=== PATIENT | female | born 1945 | race Caucasian/White ===

== ENCOUNTER → 2020-03-20 14:15 | Outpatient (BNVA) | payer MEDICARE, OTHER, SELFPAY | PROVIDERS: Visit Provider Obstetrics & Gynecology | DX: N81.4 Uterovaginal prolapse, unspecified (principal); N81.10 Cystocele, unspecified | CPT/HCPCS: 80053; 87077; 87086; 87186 ==

== ENCOUNTER → 2020-04-02 15:50 | Outpatient (BNVA) | payer MEDICARE, OTHER, SELFPAY | PROVIDERS: Visit Provider Obstetrics & Gynecology | DX: N81.4 Uterovaginal prolapse, unspecified (principal); F41.9 Anxiety disorder, unspecified | CPT/HCPCS: 81000 ==

== ENCOUNTER → 2020-04-06 08:22 | Outpatient (BNVA) | payer MEDICARE, OTHER, SELFPAY | PROVIDERS: Visit Provider Internal Medicine | DX: N81.4 Uterovaginal prolapse, unspecified (principal); Z01.812 Encounter for preprocedural laboratory examination | CPT/HCPCS: 87635 ==

== ENCOUNTER 2020-04-08 13:23 | Observation (INO) | payer MEDICARE, OTHER, SELFPAY ==
[2020-04-07 10:59] VITALS: BMI 24.7
--- NOTE | 2020-04-07 11:14 | ECG_ITS ---
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 Measurements Intervals [place] Rate: 80 P: 27 MD: 160 QRS: -11 QRSD: 90 T: -7 QT: 377 QTc: 437 Interpretive Statements SINUS RHYTHM POSSIBLE LEFT ATRIAL ENLARGEMENT [-0.1mV P WAVE IN V1/V2] POSSIBLE LEFT VENTRICULAR HYPERTROPHY [VOLTAGE CRITERIA PLUS LAE OR QRS WIDENING] POSSIBLE ANTERIOR MYOCARDIAL INFARCTION [30 ms Q WAVE IN V3/V4, OR R < 0.2 mV IN V4], OF INDETERMINATE AGE No previous ECG available for comparison Electronically Signed On 04-07-2020 21:12:04 CDT by Sheryl Pineda M.D. [id number]
--- NOTE | 2020-04-07 11:31 | ANES.PREANE2 ---
Pre-Anesthetic Assessment Pre-Anesthetic Assessment: Height/Weight: Height 1.6 m Weight 63.503 kg Preop Diagnosis: Total uterine prolapse Proposed Procedure: Operation Date: 04/08/20 09:15 Proposed Procedures p Colpocleisis [place] Procedure 75697 N81.4(Not Applicable) - Neftaly Donnelly MD Familial anesthetic complications: No hx of anesthesia (mother had ponv requirng overnight stay) Social: Social History: No alcohol and No tobacco Exam: Pre-Anes Outpt Exam: alert, oriented x 3, clear to auscultation bilaterally and regular rate & rhythm Airway: Cervical ROM: WNL MP: 4 Dentition: Chipped Pulmonary: Pulmonary: None reported CV/HEM: CV/HEM: HTN Comments: Climbs up a couple flights of stairs with no SOB or chest pain : : None reported Hepatic: Hepatic: None reported GI: GI: None reported Metabolic: Metabolic: None reported Musc/skel: Musc/skel: None reported Neuropsych: Neuropsych: None reported Anesthetic Plan: ASA status: 1 Anesthesia: General Risk of > 500 ml blood loss (7ml/kg in children): No PFSH Anesthesia PFSH: Medical History (Updated 04/02/20 @ 15:50 by Neftaly Donnelly MD) Uterine prolapse Family History Mother Anesthesia complication Denies family history of Diabetes Clotting disorder Hyperlipidemia Bleeding disorder Hypertension Stroke Social History Smoking and tobacco status: never smoked Alcohol intake: never Data Anesthesia Cardiac Studies: No Data to Display
[2020-04-07 11:48] LABS: Basophils # 0.1 10^3/uL (0.0-0.1); Basophils % 0.6 %; Hematocrit 44.9 % (37.0-47.0); Hemoglobin 14.3 g/dL (11.5-15.3); Lymphocytes # 1.6 10^3/uL (0.8-4.8); Mean Corpuscular HGB Conc 31.8 g/dL (30.0-36.0); Mean Corpuscular Hemoglobin 30.8 pg (28.0-34.0); Mean Corpuscular Volume 96.8 fL (81-99); Mean Platelet Volume 10.8 fL (7.4-10.4); Monocytes # 0.6 10^3/uL (0.2-0.9); Monocytes % 7.4 %; Neutrophils # 6.01 10^3/uL (1.8-7.7); Neutrophils % 72.6 %; Nucleated Red Blood Cells % 0 %; Platelet Count 221 10^3/cmm (130-400); Red Blood Count 4.64 10^6/uL (4.1-5.3); Red Cell Distribution Width 13.8 % (12.1-15.1); White Blood Count 8.3 10^3/uL (4.0-10.0)
[2020-04-07 11:50] LABS: Add Urine Microscopic? YES; Bilirubin Urine Neg (NEGATIVE); Blood Urine Neg (Negative); Glucose Urine UA Norm (Normal); Ketones Urine Negative (Negative); Leukocyte Esterase Urine Trace (Negative); Nitrate Urine Negative (Negative); Protein Urine Neg (Negative); Urine Appearance Clear (CLEAR); Urine Color Yellow (Yellow); Urobilinogen Urine Norm (Negative); pH Urine 6 (5-7)
[2020-04-07 11:57] LABS: Add Urine Culture? No; Bacteria Urine 2+; RBC Urine 0-4 /hpf (0-2); Squamous Epithelial Cell Urine 0-4 (0-5); WBC Urine 0-4 /hpf (0-5)
[2020-04-07 12:19] LABS: Alanine Aminotransferase 16 U/L (0-33); Albumin Level 4.6 g/dL (3.5-5.2); Alkaline Phosphatase 73 IU/L (35-105); Anion Gap 16.9 (5-19); Aspartate Amino Transferase 14 U/L (0-32); Blood Urea Nitrogen 28 mg/dL (8-23); Calcium 9.2 mg/dL (8.5-10.5); Carbon Dioxide 22 mmol/L (22-29); Chloride 103 mmol/L (98-107); Globulin 2.8 g/dL (1.3-4.6); Glucose 112 mg/dL (65-115); Osmolality Calculated 284 mOsm/kg (285-295); Potassium 3.9 mmol/L (3.5-5.1); Sodium 138 mmol/L (136-145); Total Bilirubin 0.4 mg/dL (0.15-1.2); Total Protein 7.4 g/dL (6.6-8.7)
[2020-04-08] VITALS (15 sets, daily range): BP systolic 93–143; BP diastolic 56–95; PULSE 62–88; RESP 14–18; TEMP 36.3–36.8; O2SAT 93–99; BMI 24.7
[2020-04-08] MEDS: sodium chloride 0.9% 1,000 ML 30 ML IV (08:41)
--- NOTE | 2020-04-08 08:46 | ANES.PAUD2 ---
Pre-Anesthetic Update Pre-Anesthetic Assessment: Date of Surgery/Procedure: 04/08/20 Preop Diagnosis: Total uterine prolapse Proposed Procedure: Operation Date: 04/08/20 09:15 Proposed Procedures p Colpocleisis [place] Procedure 94476 N81.4(Not Applicable) - Neftaly Donnelly MD Any changes to Pre-Anesthetic Assessment?: No Last Intake: Intake Last Liquid Date 04/07/20 Last Liquid Time 23:00 Last Solid Date 04/07/20 Last Solid Time 23:00 Labs Last 48hrs: Laboratory Results - last 48 hr 04/07/20 04/07/20 04/07/20 11:12 11:12 11:12 WBC 8.3 RBC 4.64 Hgb 14.3 Hct 44.9 MCV 96.8 MCH 30.8 MCHC 31.8 RDW 13.8 Plt Count 221 MPV 10.8 H Neut % (Auto) 72.6 Lymph % (Auto) 19.0 [place] % (Auto) 7.4 Eos % (Auto) 0.0 Baso % (Auto) 0.6 Neut # (Auto) 6.01 Lymph # (Auto) 1.6 [place] # (Auto) 0.6 Eos # (Auto) 0.0 Baso # (Auto) 0.1 Nucleated RBC % (a uto) 0 Nucleated RBCs # 0.0 Sodium 138 Potassium 3.9 Chloride 103 Carbon Dioxide 22 Anion Gap 16.9 BUN 28 H Creatinine 1.3 H GFR Calculation Not Reportable Glucose 112 Calculated Osmolal ity 284 L Calcium 9.2 Total Bilirubin 0.4 AST 14 ALT 16 Alkaline Phosphata se 73 Total Protein 7.4 Albumin 4.6 Globulin 2.8 Urine Color Yellow Urine Appearance Clear Urine pH 6 Ur Specific Gravit y 1.010 Urine Protein Neg Urine Glucose (UA) Norm Urine Ketones Negative Urine Blood Neg Urine Nitrate Negative Urine Bilirubin Neg Urine Urobilinogen Norm Ur Leukocyte [place] ase Trace H Urine RBC 0-4 H Urine WBC 0-4 H Ur Squamous Epith Cells 0-4 H Amorphous Sediment Not Reportable Urine Bacteria 2+ H Blood Type Rho(D) Type Antibody Screen 04/07/20 11:12 WBC RBC Hgb Hct MCV MCH MCHC RDW Plt Count MPV Neut % (Auto) Lymph % (Auto) [place] % (Auto) Eos % (Auto) Baso % (Auto) Neut # (Auto) Lymph # (Auto) [place] # (Auto) Eos # (Auto) Baso # (Auto) Nucleated RBC % (a uto) Nucleated RBCs # Sodium Potassium Chloride Carbon Dioxide Anion Gap BUN Creatinine GFR Calculation Glucose Calculated Osmolal ity Calcium Total Bilirubin AST ALT Alkaline Phosphata se Total Protein Albumin Globulin Urine Color Urine Appearance Urine pH Ur Specific Gravit y Urine Protein Urine Glucose (UA) Urine Ketones Urine Blood Urine Nitrate Urine Bilirubin Urine Urobilinogen Ur Leukocyte [place] ase Urine RBC Urine WBC Ur Squamous Epith Cells Amorphous Sediment Urine Bacteria Blood Type B Positive Rho(D) Type Positive Antibody Screen Negative Vitals: Temperature 97.7 F 04/08/20 08:19 Temperature Source Temporal Artery S can 04/08/20 08:19 Pulse Rate 88 04/08/20 08:19 Respiratory Rate 18 04/08/20 08:19 Blood Pressure 122/93 04/08/20 08:19 Blood Pressure Corinne n 102 04/08/20 08:19 Pulse Oximetry 95 04/08/20 08:19 Oxygen Delivery Me thod 04/08/20 08:19 Exam: Pre-Anes Outpt Exam: alert, oriented x 3, clear to auscultation bilaterally and regular rate & rhythm Cardiac Studies: No Data to Display
--- NOTE | 2020-04-08 10:57 | W.PM.OPSUD ---
Surgery/Procedure H&P Update DATE OF PROCEDURE: April 08, 2020 DATE H&P PERFORMED: 04/02/20 H&P UPDATE INFORMATION: I have reviewed H&P completed within last 30 days, I have examined patient prior to procedure and No changes to prior documentation PREOP DIAGNOSIS: Total uterine prolapse PLANNED PROCEDURE: Operation Date: 04/08/20 09:15 Proposed Procedures p Colpocleisis [place] Procedure 59152 N81.4(Not Applicable) - Neftaly Donnelly MD
[2020-04-08] MEDS: scopolamine 1.5 Patch 1 PATCH TRANSDERMA (11:06)
[2020-04-08] MEDS: midazolam 1 mg/mL INJ 2 mL 2 MG IVP (11:06)
--- NOTE | 2020-04-08 12:54 | P.OP_ITS ---
Operative Report Date of procedure: April 08, 2020 Pre-op Diagnosis: Total uterine prolapse Post-op diagnosis: same Procedure Done: [place] procedural colpocleisis. Cystoscopy Bladder stone removal. Specimens removed/disposition: Bladder stone Surgeon: Neftaly Donnelly Anesthesia: MAC Estimated blood loss (mL): 50 IV fluids (mL): 800 Urine output (mL): 100 Procedure: After informed consent, the patient was taken to the Operating Room where general anesthesia was administered. She was placed in the dorsal lithotomy position and prepped and draped in sterile fashion. A time out procedure was performed. The patient was examined under anesthesia and found to have complete uterine procidentia. A Costa catheter was placed into the bladder identify the bladder neck. Placing the cervix on traction to luciano the vagina. The vaginal mucosa was injected with either bupivacaine or 2% lidocaine with 1:200,000 epinephrine, just below the vaginal epithelium anteriorly and posteriorly. With marking pen to zee out the rectangular areas of the vaginal epithelium that are to be removed anteriorly and posteriorly. Extend the anterior rectangle from approximately 2 cm from the tip of the cervix to 4 or 5 cm below the external urethral meatus. A mirror image on the posterior aspect of the cervix and vagina. Extend the rectangle on the posterior vaginal wall from approximately 2 cm below the level of the tip f the cervix to 4 or 5 cm inside the posterior fourchette. A single-tooth tenaculum was then applied to the cervix. The uterus was then gently sounded to 4 cm. The vaginal epithelium from both the anterior and posterior vaginal pino were incised as marked and with sharp dissection dissected off leaving the maximum amount possible of vaginal muscularis on the underlying bladder and the rectum. The cut edges of the anterior and posterior vaginal pino were sew together with interrupted delayed absorbable sutures gradually turning the uterus and vaginal apex inward. Then the superior and inferior margins of the rectangles were sutured together. Then the Costa catheter was removed and cystoscope was inserted. The bladder was filled with sterile water. Complete evaluation of the bladder mucosa was per formed noting no lacerations, dimpling, tears, bleeding of the mucosa or muscular layers. A blsdder stone was visualized and was removed without complication. Both ureteral orifices were identified. Prompt excretion of urine from both ureteral orifices was noted. Cystoscope was withdrawn. Costa catheter was then placed yielding clear anne urine. Excellent hemostasis was obtained. Sponge, lap, needle, and instrument counts were correct.
[2020-04-08] MEDS: vasopressin 20 unit/mL INJ INJECTION (13:22)
--- NOTE | 2020-04-08 13:24 | SUR.PHASEI ---
PT SLEEPING QUIETLY ON RA SATS 94% ABD SOFT MISAEL PAD D/I RAUSCH TO DD WITH SMALL AMT YELLOW URNE NOTED BILAT SCDS ON STATLOCK TO LT THIGH FOR RAUSCH., IV PATENT VSS
--- NOTE | 2020-04-08 13:25 | PM.PACU ---
PACU note Post-Anesthesia Exam: awake and vital signs stable Disposition: admitted
--- NOTE | 2020-04-08 14:00 | SUR.PHASEI ---
1345 PT WAKES EASILY ON RA SAT 97% PT TO FLOOR PER CART MOVED WITH ASSIST OF 3 NURSES PT AWAKE AND ASSISTING , TALKATIVE, PT FAMILY IN TO PACU FOR MINUTE AND TALKED WITH PT , PT FLOOR NURSE INFORMED FAMILY TO BRING HER PHONE AT 4PM AND WILL CALL TO CHECK PT DIET STATUS. BP 120/67, HR 67, RESP 18
[2020-04-08] MEDS: dextrose 5%-lactated ringers 1,000 ML 125 ML IV ×2 (15:59→23:53)
[2020-04-08] MEDS: artificial tears Op Soln 15 mL Btl 1 DROP EYE-BOTH ×2 (17:29→21:06)
--- NOTE | 2020-04-08 17:49 | PM.MISC ---
Miscellaneous Note Note: Nurse called about patient complaining of eyes feeling like they have sand in them, eye drops order every [address] Molina. Upon assessing patient eyes do not appear red/irritated. Patient states she could feel air blowing in eyes from anesthesia mask prior to falling asleep and feels like eyes may just be dry from the air. Educated on keeping eyes closed as much as possible and not rubbing them. Discussed with patient that we will follow up on her tomorrow to see if there is improvement.
[2020-04-08] MEDS: ketorolac 30 mg/mL INJ IVP (22:15)
[2020-04-09] MEDS: artificial tears Op Soln 15 mL Btl 1 DROP EYE-BOTH ×3 (00:42→09:29)
[2020-04-09 06:09] VITALS: BP 99/62; PULSE 63; RESP 16; TEMP 36.6; O2SAT 95
[2020-04-09 06:22] LABS: Hematocrit 33.5 % (37.0-47.0); Hemoglobin 10.6 g/dL (11.5-15.3); Mean Corpuscular HGB Conc 31.6 g/dL (30.0-36.0); Mean Corpuscular Hemoglobin 31.5 pg (28.0-34.0); Mean Corpuscular Volume 99.4 fL (81-99); Platelet Count 162 10^3/cmm (130-400); Red Blood Count 3.37 10^6/uL (4.1-5.3); Red Cell Distribution Width 14.1 % (12.1-15.1); White Blood Count 8.4 10^3/uL (4.0-10.0)
--- NOTE | 2020-04-09 08:04 | P.DS_ITS ---
Discharge Providers TOPSTITCHER ZIGZAG Date of Admission: 04/08/20 13:23 Date of Discharge: 04/09/20 Attending Provider at Admission: Neftaly Donnelly MD Attending Provider at Discharge: Neftaly Donnelly MD Primary Care Provider: Neftaly Donnelly MD Diagnoses at Discharge Discharge Diagnosis (1) Uterine prolapse: Status: Acute Problem details: Problem resolve after surgery with the [place] colpocleisis Reason for Visit Reason for Visit: total uterine prolapse Hospital Course Hospital Course: 73-year-old female with complete uterine prolapse, Admitted for a Le[place] colpocleisis. The procedure was performed without complications. Overnight postop observation was uneventful, with the exception of patient complaining of burning eyes. Was evaluated by anesthesia. This morning she is feeling better. Refers no pain. Minimal bleeding. Undulating without difficulty. Tolerating diet well. She is afebrile hemodynamically stable Physical Exam Narrative: EXAM NARRATIVE: GA: Alert and oriented ?3. HEENT: WNL. Heart: Regular rate and rhythm. Lungs: Clear to auscultation bilaterally. Abdomen: Bowel sounds present, nontender. 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 Extremities: No edema, no cyanosis, no calves pain. Urinary Catheter Management^: Costa: Cath Placed During This Visit: yes Reason for Continuing Indwelling Catheter: Perioperative Use in Selected Surgeries Urinary Catheter Date of Insertion: 04/08/20 Urinary Catheter Time of Insertion: 11:30 Discharge Data Data Completed and Pending: Pending at discharge Category Date Time Status ES surgery / GI i mages Routine Exams 04/08/20 13:12 Taken Stone Analysis Ro utine Lab 04/08/20 13:18 Ordered Labs from last 24 hours 04/09/20 05:30 WBC 8.4 RBC 3.37 L Hgb 10.6 L Hct 33.5 L MCV 99.4 H MCH 31.5 MCHC 31.6 RDW 14.1 Plt Count 162 MPV 11.0 H Vitals: Last Vital Signs Temp 97.8 F 04/09/20 06:09 Pulse 63 04/09/20 06:09 Resp 16 04/09/20 06:09 BP 99/62 04/09/20 06:09 Pulse Ox 95 04/09/20 06:09 Discharge Plan Discharge Patient Disposition: Home Condition: Stable Prescriptions: New acetaminophen 325 mg capsule 325 mg PO Q4H PRN (Reason: fever or pain) Qty: 60 RF: 0 ibuprofen 800 mg tablet 800 mg PO TID PRN (Reason: pain) Qty: 60 RF: 0 ferrous sulfate 325 mg (65 mg iron) tablet 325 mg PO BID Qty: 60 RF: 0 Continued atenolol 50 mg tablet 50 mg PO DAILY RF: 0 diazepam [Valium] 5 mg tablet 5 mg PO BID PRN (Reason: Anxiety) RF: 0 zolpidem [Ambien] 5 mg tablet 5 mg PO .Before bedtime 10 Days Qty: 10 RF: 0 nitrofurantoin macrocrystal 100 mg capsule 100 mg PO BID 7 Days Qty: 14 RF: 0 dimenhydrinate [Dramamine] 50 mg Tablet 50 mg PO Q8H RF: 0 Discharge Orders: Discharge Order (Routine); Ordered 04/09/20 Ordered By: Neftaly Donnelly Referrals: Neftaly Donnelly MD [Primary Care Provider] - 2 weeks Discharge Diet: As Directed Discharge Activity: Increase activity as tolerated Patient Instructions: Uterine Prolapse (DC), Uterine Prolapse (GEN) Activity Restrictions/Additional Instructions: Pelvic rest for 6 weeks (no sex, no tampons, no vaginal douches). Return to the emergency room if any fever, increased bleeding or pain. Discharge Attestations TOPSTITCHER ZIGZAG Time Spent in Discharge Care*: greater than 30 min Specific Discharge Activities: Specific discharge activities: educating patient Coding Level of Care Code Acute Hadoop Software Engineer for Andrewg Fwd Diagnoses Uterine prolapse N81.4
--- NOTE | 2020-04-09 08:17 | ANE.PACU2 ---
Inpatient post-anesthesia follow up: Airway intact: Yes Vital signs: Temperature 97.8 F Pulse Rate 63 Respiratory Rate 16 Blood Pressure 99/62 Pulse Oximetry 95 Oxygen Delivery Me thod Room Air Oxygen Flow Rate 8 Fraction of Inspir ed Oxygen Hydration adequate: Yes Nausea and vomiting: No Pain level: 1 Mental status: Baseline Additional Comments: Patient's eyes improved with artificial tears. Still feels irritated, but patient doesn't feel she will require an opthalmologist. Instructed patient to conintue artifcial tears prn and see physician if irritation continues
[2020-04-09 10:40] VITALS: BP 105/66; PULSE 68; RESP 16; TEMP 36.6; O2SAT 95
[2020-04-15 19:17] LABS: Stone Source BLADDER
== END 2020-04-09 12:25 | disposition home or self-care (01) ==
LOC: OBGYN 13:26
PROVIDERS: Admitting Provider Obstetrics & Gynecology; PCP Obstetrics & Gynecology; Visit Provider Obstetrics & Gynecology
PROC: (CPT 57120; principal; 2020-04-08 09:15)
PROC: 0TJB8ZZ Inspection of Bladder, Via Natural or Artificial Opening Endoscopic (ICD-10-PCS; CPT 52000; 2020-04-08 09:15)
DX: N81.4 Uterovaginal prolapse, unspecified (principal); N21.0 Calculus in bladder; F41.9 Anxiety disorder, unspecified
CPT/HCPCS: 52310; 57120; 12345; 36415; 80053; 81001; 82365; 85025; 85027; 86850; 86900; 88300; 93005; 96360; 96361; 96375; G0378; J1100; J1885; J2250; J2405; J2704; J2765; J3010; J3490; J7030

== ENCOUNTER 2020-09-17 10:36 | Outpatient (CLI) | payer MEDICARE, OTHER, SELFPAY ==
--- NOTE | 2020-09-17 10:42 | XR_ITS ---
WS: [id number] ABDOMEN 1 VIEW(S) HISTORY: bladder stone COMPARISON: None available. Normal bowel gas pattern. No suspicious calcifications or masses. 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 XR/XR KUB [id number] IMPRESSION: No renal or ureteral stones or bladder calcifications identified.
== END 2020-09-17 10:37 | disposition home or self-care (01) ==
LOC: RADWPI 10:40
PROVIDERS: PCP Nurse Practitioner Family; Visit Provider Nurse Practitioner Family
DX: N21.0 Calculus in bladder (principal)
CPT/HCPCS: 74018; 81003; 87077; 87086; 87184

== ENCOUNTER 2020-11-11 07:32 | Outpatient (CLI) | payer MEDICARE, OTHER, SELFPAY ==
--- NOTE | 2020-11-11 07:47 | US_ITS ---
WS: [id number] ULTRASOUND RENAL TECHNIQUE: Ultrasound examination of both kidneys. CLINICAL INFORMATION: recurrent uti COMPARISON: None. FINDINGS: RIGHT: Right kidney is normal in size and appearance. Echogenicity: Normal. Cortical thickness: 0.9 cm; Hydronephrosis: None. Perinephric fluid: None. Right kidney measures: 9.1 cm x 5.9 cm x 3.0 cm. LEFT: Left kidney is normal in size and appearance. Echogenicity: Normal. Cortical thickness: 0.5 cm; Hydronephrosis: None. Perinephric fluid: None. Left kidney measures: 9.0 cm x 2.5 cm x 2.8 cm. Normal visualized aorta. Prevoid bladder volume 50 cc US/US renal BI* [id number] IMPRESSION: 1. Bladder not fully distended. Prevoid bladder volume 42 cc. 2. Lower pole right renal cyst with single septation measuring 1.1 x 1.3 x 1.2 cm 3. Mild to moderate left renal cortical atrophy. 4. No hydronephrosis in either kidney.
== END 2020-11-11 07:33 | disposition home or self-care (01) ==
LOC: RAD 07:39
PROVIDERS: PCP Nurse Practitioner Family; Visit Provider Urology
DX: N39.0 Urinary tract infection, site not specified (principal); N26.1 Atrophy of kidney (terminal); Q61.01 Congenital single renal cyst
CPT/HCPCS: 76770; 81003

== ENCOUNTER 2021-04-20 09:05 | Outpatient (CLI) | payer MEDICARE, OTHER, SELFPAY ==
--- NOTE | 2021-04-20 09:00 | XR_ITS ---
WS: [id number] XR KUB [id number] REASON FOR EXAM: bladder stone FINDINGS: The current examination is unchanged compared to previous study of 09/17/2020. No urinary tract calcul i are identified. No free air or retroperitoneal air. Normal bowel gas pattern. 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 XR/XR KUB [id number] IMPRESSION: No urinary tract calculi identified.
== END 2021-04-20 09:06 | disposition home or self-care (01) ==
LOC: RAD 09:11
PROVIDERS: PCP Nurse Practitioner Family; Visit Provider Urology
DX: N21.0 Calculus in bladder (principal)
CPT/HCPCS: 74018; 81003

== ENCOUNTER → 2021-08-10 14:05 | Outpatient (BNVA) | payer MEDICARE, OTHER, SELFPAY | PROVIDERS: PCP Nurse Practitioner Family; Visit Provider Urology | DX: N21.0 Calculus in bladder (principal) | CPT/HCPCS: 81003 ==

== ENCOUNTER → 2021-12-14 15:05 | Outpatient (BNVA) | payer MEDICARE, OTHER, SELFPAY | PROVIDERS: PCP Nurse Practitioner Family; Visit Provider Urology | DX: N30.80 Other cystitis without hematuria (principal); N39.0 Urinary tract infection, site not specified | CPT/HCPCS: 81003; 99213 ==

== ENCOUNTER → 2021-12-27 13:38 | Outpatient (BNVA) | payer MEDICARE, OTHER, SELFPAY | PROVIDERS: PCP Nurse Practitioner Family; Visit Provider Nurse Practitioner Family | DX: N39.0 Urinary tract infection, site not specified (principal) | CPT/HCPCS: 87077; 87086; 87186 ==

== ENCOUNTER → 2022-02-09 12:50 | Outpatient (BNVA) | payer MEDICARE, OTHER, SELFPAY | PROVIDERS: PCP Nurse Practitioner Family; Visit Provider Nurse Practitioner Family | DX: N39.0 Urinary tract infection, site not specified (principal) | CPT/HCPCS: 81003; 87077; 87086; 87186 ==

== ENCOUNTER → 2022-04-18 12:31 | Outpatient (BNVA) | payer MEDICARE, OTHER, SELFPAY | PROVIDERS: PCP Nurse Practitioner Family; Visit Provider Nurse Practitioner Family | DX: N30.80 Other cystitis without hematuria (principal) | CPT/HCPCS: 81003; 87077; 87086; 87186 ==

== ENCOUNTER → 2022-05-23 13:49 | Outpatient (BNVA) | payer MEDICARE, OTHER, SELFPAY | PROVIDERS: PCP Nurse Practitioner Family; Visit Provider Urology | DX: N30.80 Other cystitis without hematuria (principal); N21.0 Calculus in bladder | CPT/HCPCS: 81003; 87077; 87086; 87186; 99213 ==

== ENCOUNTER → 2022-09-01 13:43 | Outpatient (BNVA) | payer MEDICARE, OTHER, SELFPAY | PROVIDERS: PCP Nurse Practitioner Family; Visit Provider Urology | DX: N30.80 Other cystitis without hematuria (principal); N21.0 Calculus in bladder | CPT/HCPCS: 81003; 99213 ==